=== PATIENT | female | born 1955 | race Caucasian/White ===

== ENCOUNTER → 2020-11-21 06:33 | Outpatient (CLI) | payer MEDICARE, SELFPAY ==
[2020-11-21 15:23] LABS: SARS-CoV-2 RNA PCR Negative
== END ==
PROVIDERS: PCP Family Medicine; Visit Provider Physician Assistant Medical
DX: Z20.822 Contact with and (suspected) exposure to COVID-19 (principal)
CPT/HCPCS: C9803; U0003; U0005

== ENCOUNTER 2022-01-22 13:49 | Outpatient (CLI) | payer MEDICARE, SELFPAY ==
--- NOTE | ~2022-01-22 | MM_ITS ---
EXAMINATION: MM screening bimal BI w césar HISTORY: Screening TECHNIQUE: Craniocaudal and mediolateral oblique 3-D tomosynthesis images were obtained and synthetic 2-D images were generated. CAD analysis was submitted and interpreted. COMPARISON: Comparison to multiple prior studies sequentially, with oldest reviewed study dated 01/04. BREAST PARENCHYMAL COMPOSITION: Breast composed of scattered areas of fibroglandular density FINDINGS: There are developing masses bilaterally in the upper outer quadrants as well as the lower i nner quadrant of the left breast. There are benign breast calcifications, unchanged. IMPRESSION: 1. Developing bilateral breast masses. 2. Additional mammographic views and possible breast ultrasound are recommended. BI-RADS Category 0: Incomplete: Needs additional imaging evaluation. Reviewed, dictated and finalized at location A. IMPRESSION: 1. Developing bilateral breast masses. 2. Additional mammographic views and possible breast ultrasound are recommended . BI-RADS Category 0: Incomplete: Needs additional imaging evaluation.
== END 2022-01-22 13:50 | disposition home or self-care (01) ==
LOC: ANHIMG 13:55
PROVIDERS: PCP Family Medicine; Visit Provider Family Medicine
DX: Z12.31 Encounter for screening mammogram for malignant neoplasm of breast (principal); R92.8 Other abnormal and inconclusive findings on diagnostic imaging of breast
CPT/HCPCS: 77063; 77067

== ENCOUNTER 2022-02-03 11:01 | Outpatient (CLI) | payer MEDICARE, SELFPAY ==
--- NOTE | ~2022-02-03 | MMUS_ITS ---
EXAMINATION: MM diagnostic bimal BI w césar, US breast LT complete, US breast RT limited HISTORY: Follow-up bilateral breast asymmetries TECHNIQUE: Additional 3-D tomosynthesis images of the breasts were performed and synthetic 2-D images were generated. CAD analysis was submitted and interpreted. High resolution Limited right and comple te left breast ultrasound was performed. COMPARISON: Comparison to multiple prior studies sequentially, with oldest reviewed study dated 02/07. BREAST PARENCHYMAL COMPOSITION: Breast composed of scattered areas of fibroglandular density FINDINGS: MAMMOGRAPHIC FINDINGS: There is a persistent mass in the upper outer quadrant of the right breast posteriorly. Focal left br east asymmetries are not apparent with spot compression and mediolateral views. ULTRASOUND: Complete left breast ultrasound including all 4 quadrants in the subareolar location as well as limit ed ultrasound of the right breast: Right breast: At 10:00, 5 cm from the nipple there is an 8 mm cyst corresponding to the mammographic finding. Left breast: There are multiple cysts of the left breast including a 6 mm cyst at 3:00 and 5 mm cyst at 6:00. No suspicious masses to suggest malignancy. IMPRESSION: 1. No evidence for malignancy in either breast. Bilateral benign findings. 2. Routine yearly screening mammogram and regular clinical breast examination are recommended. BI-RADS Category 2: Benign finding(s). Reviewed, dictated and finalized at location A. IMPRESSION: 1. No evidence for malignancy in either breast. Bilateral benign findings. 2. Routine yearly screening mammogram and regular clinical breast examination a re recommended. BI-RADS Category 2: Benign finding(s). IMPRESSION: 1. No evidence for malignancy in either breast. Bilateral benign findings. 2. Routine yearly screening mammogram and regular clinical breast examination a re recommended. BI-RADS Category 2: Benign finding(s).
== END 2022-02-03 11:02 | disposition home or self-care (01) ==
LOC: ANHIMG 11:05
PROVIDERS: PCP Family Medicine; Visit Provider Family Medicine
DX: R92.8 Other abnormal and inconclusive findings on diagnostic imaging of breast (principal)
CPT/HCPCS: 76641; 76642; 77062; 77066; G0279

== ENCOUNTER 2022-04-11 11:17 | Emergency (ER) | payer MEDICARE, SELFPAY ==
--- NOTE | ~2022-04-11 | XR_ITS ---
XR knee LT 3V DATE: 04/11/2022 11:53 INDICATION: Fall. Left knee pain, patellar tenderness. Abrasion, bruising TECHNIQUE: Portable three-view examination including crosstable lateral COMPARISON: None FINDINGS: No fracture or dislocation or joint effusion, periosteal reaction or bone destruction, radi opaque intra-articular loose body or chondrocalcinosis or significant joint space narrowing is eviden t. IMPRESSION: Negative Reviewed, dictated and finalized at location B. IMPRESSION: Negative
[2022-04-11 11:28] VITALS: PULSE 65; RESP 16; TEMP 36.6; O2SAT 100
--- NOTE | 2022-04-11 11:36 | ED.FALL ---
HPI - Fall General Chief Complaint: Fall Stated Complaint: fall, hurt left knee Time Seen by Provider: 04/11/22 11:21 History of Present Illness HPI Narrative: Patient is an 66-year-old female here for evaluation of left knee pain after fall today. Patient states that she was in her usual state of health, walking on concrete, when she missed a step, causing her to fall, landed on her out stretched hands and her left knee. Patient states she does not have any hand or wrist pain currently and is currently only complaining of left knee pain. She denies any head injury or loss of consciousness. She denies any confusion, chest pain, weakness, fevers or chills. She has been ambulating on the leg but does states it is sore. Has not taken any medication for the pain. No numbness or tingling in her leg or hands. Related Data Home Medications Medication Instructions Recorded Confirmed calcium carbonate 500 mg calcium 500 mg PO DAILY 05/26/19 05/26/19 (1,250 mg) tablet (Calcium 500) folic acid 1 mg tablet 1 mg PO DAILY 05/26/19 05/26/19 multivitamin with minerals (Daily 1 tablet PO DAILY 05/26/19 05/26/19 Multivitamin-Minerals tablet) ascorbic acid (vitamin C) 1,000 mg 500 mg PO DAILY 04/02/22 04/02/22 tablet (Vitamin C) cholecalciferol (vitamin D3) 25 2,000 unit PO DAILY 04/02/22 04/02/22 mcg (1,000 unit) capsule (Vitamin D3) folic acid 800 mcg tablet 0.8 mg PO DAILY 04/02/22 04/02/22 Allergies Allergy/AdvReac Type Severity Reaction Status Date / Time No Known Allergies Allergy Mild Verified 04/02/22 10:42 Review of Systems Review of Systems: Gen: Denies fevers or chills Eyes: Denies eye pain or visual change ENT: Denies congestion Respiratory: Denies shortness of breath or cough CV: Denies chest pain or palpitations GI: Denies abdominal pain nausea, emesis or diarrhea : denies burning, urgency, frequency or hematuria Musculoskeletal: Reports left knee pain. Denies back pain or muscle pain Neuro: Denies numbness, tingling, weakness or focal weakness Skin: Denies rash Except as documented, all other systems reviewed and negative [facility] Past Medical History Medical History Abnormal colonoscopy 06-01-19/ fedder/ transverse colon polyps repeat in 5 years G-6-PD deficiency Surgical History Surgical History History of breast surgery marker placed after bx Family History Family History Father Hypertension Cerebrovascular accident Carcinoma of colon Family history of pancreatic cancer Family history of primary malignant neoplasm of liver Mother Hypertension Family history of Alzheimer's disease Family history of dementia Sibling Family history of sudden Other Family history of bipolar disorder Family history of cardiovascular disease Family history of malignant neoplasm of breast Family history of mental disorder Social History Social History Smoking status: Never smoker Alcohol intake: never Exam Narrative: APPEARANCE: Well appearing, no pain in distress, well-nourished. Head: Normocephalic and atraumatic. EYES: PERRLA/EOMI, conjunctivae clear NOSE: No nasal drainage EARS: External ear normal in appearance THROAT: Oropharynx is clear. Mucous membranes are moist. NECK: Supple. No adenopathy, no masses. RESPIRATORY: Airway patent, respirations nonlabored. Clear to auscultation bilaterally, no rales, rhonchi, wheezing. CARDIOVASCULAR: Regular rate and rhythm without murmurs, rubs, or gallops. ABDOMINAL: Normoactive bowel sounds. Soft, nontender, nondistended. No rebound tenderness or guarding. MUSCULOSKELETAL: Tender to palpation along anterior left patella. She has range of motion in her left knee, notes flexion is painful.
[2022-04-11 11:56] VITALS: BP 188/65
== END 2022-04-11 12:41 | disposition home or self-care (01) ==
PROVIDERS: Emergency Provider Emergency Medicine; PCP Family Medicine
DX: S89.92XA Unspecified injury of left lower leg, initial encounter (principal); W10.1XXA Fall (on)(from) sidewalk curb, initial encounter
CPT/HCPCS: 73562; 99283

== ENCOUNTER 2022-06-06 13:43 | Outpatient (CLI) | payer MEDICARE, SELFPAY ==
--- NOTE | ~2022-06-06 | DEXA_ITS ---
Bone Density Report Name: GAYLA ROBERTS Age: 66 Sex: Female Ethnicity: White Date of : 1955 Indication: postmenopausal; screening for osteoporosis; Referring Provider: LEI BENNETT Study: Bone densitometry was performed. Exam Date: June 06, 2022 Accession number: [id number] Bone Density: Region BMD T-score Z-score Classification AP Spine(L1-L4) 0.880 -1.5 0.5 Osteopenia Femoral Neck (Left) 0.663 -1.7 0.1 Osteopenia Total Hip (Left) 0.777 -1.4 0.1 Osteopenia Femoral Neck (Right) 0.720 -1.2 0.6 Osteopenia Total Hip (Right) 0.859 -0.7 0.8 Normal Total Hip Mean 0.818 -1.1 0.5 Osteopenia World Health Organization criteria for BMD impression classify patients as: Normal (T-score at or above -1.0), Osteopenia (T-score between -1.0 and -2.5), or Osteoporosis (T-score at or below -2.5). 10-year Fracture Risk(1): Major Osteoporotic Fracture 10% Hip Fracture 1.5% Reported Risk Factors: [place] (), Neck BMD=0.663, BMI=26.1 (1) FRAX(R) Version 3.08. Fracture probability calculated for an untreated patient. Fracture probability may be lower if the patient has received treatment. Clinical Information Provided by Patient: Has used the following medications: Vitamin D, Calcium Patient maximum height was 63 Onset of menses at age 12 Number of children 6 Impression: The patient has low bone mass, based on the Left Femoral Neck T-score. The patient has an estimated ten-year risk of hip fracture of 1.5% and an estimated ten-year risk of major fracture of 10%, based on the WHO FRAX algorithm. Discussion: BONE DENSITY IS LOW AT ONE OR MORE SKELETAL SITES. This patient's lowest T-score is low at one or more skeletal sites. It meets the World Health Organization's (WHO) criteria for ?low bone mass? (T-score between -1.0 and -2.5). The patient's 10-year risk of fracture as calculated by FRAX is less than the threshold where pharmacological therapy is recommended by the National Osteoporosis Foundation (NOF). However, all treatment decisions require clinical judgment and consideration of individual patient factors, including patient preferences, comorbidities, previous drug use, risk factors not captured in the FRAX model (e.g., frailty, falls, vitamin D deficiency, increased bone turnover, interval significant decline in bone density) and possible under or overestimation of fracture risk by FRAX. The patient should follow a healthful lifestyle (good nutrition with adequate calcium and vitamin D, and appropriate weight-bearing exercise). Follow-Up: Consider repeating this study in 2 to 3 years to reassess this patient's status, or sooner if there is some new clinical indication. Reported by: YUMIKO on 06/06/2022 2:01:00 PM.
== END 2022-06-06 13:44 | disposition home or self-care (01) ==
LOC: ANHIMG 13:44
PROVIDERS: PCP Family Medicine; Visit Provider Physician Assistant
DX: Z78.0 Asymptomatic menopausal state (principal); M85.89 Other specified disorders of bone density and structure, multiple sites
CPT/HCPCS: 77080

== ENCOUNTER 2022-11-04 09:00 | Outpatient (NON) | payer MEDICARE, SELFPAY | END 2022-11-04 09:01 | disposition home or self-care (01) | LOC: ANHLAB 11-05 12:21 | PROVIDERS: PCP Family Medicine; Visit Provider Nurse Practitioner | DX: D17.22 Benign lipomatous neoplasm of skin and subcutaneous tissue of left arm (principal) | CPT/HCPCS: 88304 ==

== ENCOUNTER 2023-05-22 10:40 | Outpatient (CLI) | payer MEDICARE, SELFPAY ==
[2023-05-22 18:38] LABS: Basophils Absolute Auto 0.1 K/mm3 (0.0-0.1); Basophils Percent Auto 0.7 % (0.2-1.2); Eosinophils Absolute Auto 0.4 K/mm3 (0-0.3); Eosinophils Percent Auto 3.4 % (0-4.4); Hematocrit 38.7 % (37.0-47.0); Immature Granulocyte Absolute 0.05 K/mm3 (0.00-0.031); Immature Granulocyte Percent A 0.5 % (0-0.5); Lymphocytes Absolute Auto 3.28 K/mm3 (0.9-3.2); Lymphocytes Percent Auto 32.1 % (18.3-44.2); Mean Corpuscular Hemoglobin 33.2 pg (26-34); Mean Corpuscular Volume 107.2 fl (80-100); Mean Platelet Volume 10.9 fl (7.4-10.4); Monocytes Absolute Auto 0.6 K/mm3 (0.1-0.6); Monocytes Percent Auto 5.8 % (2.6-8.5); Neutrophils Absolute Auto 5.9 K/mm3 (1.3-6.7); Neutrophils Percent Auto 57.5 % (45.5-73.1); Platelet Count Result 206 k/mm3 (150-375); Red Blood Count 3.61 M/mm3 (4.2-5.4); Red Cell Distribution Width 14.1 % (11.5-14.5); White Blood Count 10.2 K/mm3 (4.5-10.0)
[2023-05-22 18:40] LABS: Anion Gap 6 mmol/L (8-16); Blood Urea Nitrogen 16 mg/dL (7-17); Calcium 9.6 mg/dL (8.4-10.2); Carbon Dioxide 31 mmol/L (22-30); Chloride 106 mmol/L (98-107); Cholesterol 219 mg/dL (0-200); Estimated Glomerular Filt Rate > 60; Glucose 95 mg/dL (65-110); HDL Direct 44 mg/dL; Sodium 143 mmol/L (137-145); Triglycerides 112 mg/dL (<150)
[2023-05-22 18:50] LABS: LDL Cholesterol Direct 139 mg/dL
[2023-05-22 19:01] LABS: Vitamin D 25 Hydroxy 57.7 ng/mL
[2023-05-22 19:10] LABS: Thyroid Stimulating Hormone 0.534 uIU/mL (0.465-4.680)
[2023-05-22 19:20] LABS: Hypochromasia 1+ (NORMAL); Platelet Estimate Adequate (Adequate); Schistocytes None Seen (NORMAL)
[2023-05-22 19:21] LABS: Macrocytosis 1+ (NORMAL)
[2023-05-22 19:33] LABS: Hepatitis C Virus Antibody Negative (Negative)
== END 2023-05-22 10:41 | disposition home or self-care (01) ==
PROVIDERS: PCP Family Medicine; Visit Provider Nurse Practitioner Family
DX: E55.9 Vitamin D deficiency, unspecified (principal); M85.80 Other specified disorders of bone density and structure, unspecified site; R03.0 Elevated blood-pressure reading, without diagnosis of hypertension; Z11.59 Encounter for screening for other viral diseases; Z68.30 Body mass index [BMI] 30.0-30.9, adult; Z78.0 Asymptomatic menopausal state; E78.00 Pure hypercholesterolemia, unspecified; R53.83 Other fatigue
CPT/HCPCS: 36415; 80048; 80061; 82306; 84443; 85025; 86803

== ENCOUNTER 2023-05-27 07:41 | Outpatient (CLI) | payer MEDICARE, SELFPAY ==
--- NOTE | ~2023-05-27 | MM_ITS ---
EXAMINATION: MM screening bimal BI w césar HISTORY: Screening TECHNIQUE: Craniocaudal and mediolateral oblique 3-D tomosynthesis images were obtained and synthetic 2-D images were generated. CAD analysis was submitted and interpreted. COMPARISON: Comparison to multiple prior studies sequentially, with oldest reviewed study dated 03/19. BREAST PARENCHYMAL COMPOSITION: There are scattered areas of fibroglandular density. FINDINGS: There are stable benign-appearing breast calcifications. Bilateral breast asymmetries are s table. There is no evidence of suspicious mass, calcification, or architectural distortion to suggest malignancy in either breast. There has been no suspicious interval change. IMPRESSION: 1. No mammographic evidence of malignancy. 2. Recommend routine screening mammography in one year. BI-RADS Category 2: Benign finding(s). Reviewed, dictated and finalized at location A. CTOR OF NURSES REGISTRY
== END 2023-05-27 07:42 | disposition home or self-care (01) ==
PROVIDERS: PCP Family Medicine; Visit Provider Nurse Practitioner Family
DX: Z12.31 Encounter for screening mammogram for malignant neoplasm of breast (principal)
CPT/HCPCS: 77063; 77067

== ENCOUNTER 2024-06-24 09:24 | Outpatient (CLI) | payer MEDICARE, SELFPAY ==
--- NOTE | ~2024-06-24 | MM_ITS ---
EXAMINATION: MM screening mammo BI HISTORY: Screening TECHNIQUE: Craniocaudal and mediolateral oblique 3-D tomosynthesis images were obtained and synthetic 2-D images were generated. CAD analysis was submitted and interpreted. COMPARISON: Comparison to multiple prior studies sequentially, with oldest reviewed study dated 07/29. BREAST PARENCHYMAL COMPOSITION: Not dense: There are scattered areas of fibroglandular density. FINDINGS: There is no evidence of suspicious mass, calcification, or architectural distortion to sugg est malignancy in either breast. There has been no suspicious interval change. IMPRESSION: 1. No mammographic evidence of malignancy. 2. Recommend routine screening mammography in one year. BI-RADS Category 1: Negative Reviewed, dictated and finalized at location B. LOPER ADVISOR
== END 2024-06-24 09:25 | disposition home or self-care (01) ==
LOC: ANHIMG 09:25
PROVIDERS: PCP Family Medicine; Visit Provider Family Medicine
DX: Z12.31 Encounter for screening mammogram for malignant neoplasm of breast (principal)
CPT/HCPCS: 77067

== ENCOUNTER 2025-01-02 09:15 | Outpatient (CLI) | payer MEDICARE, SELFPAY ==
--- NOTE | ~2025-01-02 | DEXA_ITS ---
Bone Density Report Name: GAYLA ROBERTS Age: 69 Sex: Female Ethnicity: White Date of : 1955 Indication: osteopenia; Referring Provider: KIMMIE DURADN Study: Bone densitometry was performed. Exam Date: January 02, 2025 Accession number: [id number] Bone Density: Region BMD T-score Z-score Classification AP Spine(L1-L4) 0.858 -1.7 0.5 Osteopenia Femoral Neck (Left) 0.686 -1.5 0.4 Osteopenia Total Hip (Left) 0.868 -0.6 1.0 Normal Femoral Neck (Right) 0.719 -1.2 0.7 Osteopenia Total Hip (Right) 0.914 -0.2 1.4 Normal Total Hip Mean 0.891 -0.4 1.2 Normal World Health Organization criteria for BMD impression classify patients as: Normal (T-score at or above -1.0), Osteopenia (T-score between -1.0 and -2.5), or Osteoporosis (T-score at or below -2.5). 10-year Fracture Risk(1): Major Osteoporotic Fracture 9.7% Hip Fracture 1.4% Reported Risk Factors: [place] (), Neck BMD=0.686, BMI=30.9 (1) FRAX(R) Version 3.08. Fracture probability calculated for an untreated patient. Fracture probability may be lower if the patient has received treatment. Previous Exams: Region Exam Age BMD T-score BMD Change BMD Change Date g/cm2 vs Baseline vs Previous AP Spine (L1-L4) 01/02/2025 69 0.858 -1.7 -0.047 (-5.1%) -0.022 (-2.5%) 06/06/2022 66 0.880 -1.5 -0.024 (-2.7%) -0.024 (-2.7%) 07/29/2018 63 0.905 -1.3 Total Hip(Left) 01/02/2025 69 0.868 -0.6 -0.130 (-13.0% 0.091 (11.7%)* 06/06/2022 66 0.777 -1.4 -0.221 (-22.2% -0.221 (-22.2% 07/29/2018 63 0.998 0.5 Total Hip(Right) 01/02/2025 69 0.914 -0.2 -0.097 (-9.6%) 0.056 (6.5%)* 06/06/2022 66 0.859 -0.7 -0.152 (-15.1% -0.152 (-15.1% 07/29/2018 63 1.011 0.6 *Denotes significance at 95% confidence level, LSC for AP Spine = 0.022 g/cm2, LSC for Total Hip = 0.027 g/cm2 Clinical Information Provided by Patient: Has used the following medications: Vitamin D, Calcium Patient maximum height was 63 Onset of menses at age 12 Number of children 6 Impression: The patient has low bone mass, based on the Total Spine T-score. The patient has an estimated ten-year risk of hip fracture of 1.4% and an estimated ten-year risk of major fracture of 9.7%, based on the WHO FRAX algorithm. No significant bone loss was observed. Discussion: BONE DENSITY IS LOW AT ONE OR MORE SKELETAL SITES. This patient's lowest T-score is low at one or more skeletal sites. It meets the World Health Organization's (WHO) criteria for ?low bone mass? (T-score between -1.0 and -2.5). The patient's 10-year risk of fracture as calculated by FRAX is less than the threshold where pharmacological therapy is recommended by the National Osteoporosis Foundation (NOF). However, all treatment decisions require clinical judgment and consideration of individual patient factors, including patient preferences, comorbidities, previous drug use, risk factors not captured in the FRAX model (e.g., frailty, falls, vitamin D deficiency, increased bone turnover, interval significant decline in bone density) and possible under or overestimation of fracture risk by FRAX. The patient should follow a healthful lifestyle (good nutrition with adequate calcium and vitamin D, and appropriate weight-bearing exercise). Follow-Up: Consider repeating this study in 2 to 3 years to reassess this patient's status, or sooner if there is some new clinical indication. Reported by: YUMIKO on 01/02/2025 9:52:00 AM. Reviewed, dictated and finalized at location A.
--- OUTSIDE RECORDS SUMMARY | 2025-01-02 09:46 | XMS_ITS | Clinical Summary ---
Author Organization [facility] Address [address] [place] [address] Care Team Providers Care Director Of Land Acquisition Name Role Phone Unavailable Primary Care Provider Unavailabl e Social History Tobacco Use Types Packs/Day Years Used Date Smoking Tobacco: Never Assessed Comments Unknown Sex and Gender Information Value Date Recorded Sex Assigned at Not on file Legal Sex Female 4:44 PM CDT Gender Identity Not on file Sexual Orientation Not on file Plan of Treatment Health Maintenance Due Date Last Done Comments Colorectal Cancer Screening Colonoscopy (10 Years) 1955 Hepatitis C 1971 DTaP, Tdap and Td Vaccines ( 1 - Tdap) 1972 Mammogram Screening 1993 Pneumococcal Vaccine: 50+ Ye ars (1 of 1 - PCV) 2003 Zoster Vaccines (1 of 2) 2003 Dexa Scan (General) 2018 COVID-19 Vaccine ( - 2023-2 5 season) 2024 RSV Immunization or 60+ Years (1 - 1-dose 75+ series) 2028 Meningococcal B Vaccine Aged Out No l onger eligible based on patient's age to complete this topic Meningococcal Vaccine Aged Out No christophe dennis eligible based on patient's age to complete this topic RSV Immunizations Under 20 Months Aged Out No longer eligible based on patient's age to complete this topic
== END 2025-01-02 09:16 | disposition home or self-care (01) ==
PROVIDERS: PCP Family Medicine; Visit Provider Family Medicine
DX: M85.89 Other specified disorders of bone density and structure, multiple sites (principal); Z78.0 Asymptomatic menopausal state
CPT/HCPCS: 77080

== ENCOUNTER 2025-06-19 00:15 | Day surgery (SDC) | payer MEDICARE, SELFPAY ==
[2025-05-30 15:09] VITALS: BMI 29.7
[2025-06-19 07:38] VITALS: BP 180/83; PULSE 77; RESP 18; TEMP 36.1; O2SAT 99; BMI 29.2
--- NOTE | 2025-06-19 07:40 | WPDANESEPPF ---
Anes - Initial Pre Proc Eval Procedure: Operation Date: 06/19/25 09:00 Proposed Procedures p Screening Colonoscopy - Arik Seay MD Date/Time: 06/19/25 07:40 Surgeon: Arik Seay MD Pre Op Diagnosis: Personal history of colon polyps, unspecified Patient Data Age: 69 Gender: F Height: 1.6 m Weight: 75 kg Last Vital Signs Temp 36.1 C L 06/19/25 07:38 Pulse 77 06/19/25 07:38 Resp 18 06/19/25 07:38 BP 180/83 H 06/19/25 07:38 Pulse Ox 99 06/19/25 07:38 O2 Del Method Room Air 06/19/25 07:38 Allergies Allergy/AdvReac Type Severity Reaction Status Date / Time No Known Allergies Allergy Mild Verified 06/19/25 07:36 Home Medications ?Medication ?Instructions ?Recorded ?Confirmed ?Type calcium carbonate (Calcium 500) 500 mg PO DAILY 05/26/19 06/19/25 History multivitamin with minerals (Daily 1 tablet PO DAILY 05/26/19 06/19/25 History Multivitamin-Minerals tablet) ascorbic acid (vitamin C) 1,000 mg 500 mg PO DAILY 04/02/22 06/19/25 History tablet (Vitamin C) cholecalciferol (vitamin D3) 25 2,000 unit PO DAILY 04/02/22 06/19/25 History mcg (1,000 unit) capsule (Vitamin D3) folic acid 800 mcg tablet 0.8 mg PO DAILY 04/02/22 06/19/25 History sodium sul 1.479 gram-potas ch See Rx Instructions PO PER PKG DIR 11/28/24 06/19/25 Rx 0.188 gram-magnes sul 0.225 gram #24 tabs tablet (Sutab) Patient hx anesthesia problems: none Family hx anesthesia problems: none Results Review: All pre-operative results and documents have been reviewed as part of the pre-operative evaluation. [facility] Past Medical History Medical History Abnormal colonoscopy 06-01-19/ fedder/ transverse colon polyps repeat in 5 years G-6-PD deficiency Surgical History Surgical History History of breast surgery marker placed after bx Family History Family History Father Hypertension Cerebrovascular accident Carcinoma of colon Family history of pancreatic cancer Family history of primary malignant neoplasm of liver Mother Hypertension Family history of Alzheimer's disease Family history of dementia Sibling Family history of sudden Other Family history of bipolar disorder Family history of cardiovascular disease Family history of malignant neoplasm of breast Family history of mental disorder Social History Social History Smoking status: Never smoker Alcohol intake: never Substance use: never Substance use type: does not use Lack of Transportation: No Lack of Food: Never True Current Housing: I Have Housing Concerned About Future Housing: No Difficulty Paying Gas/Electric Bills: No Difficulty Paying for Meds: No Currently Unemployed: No Education: Associate Degree Difficulty w/ Childcare or Family Care: No Living arrangements: with family Spiritual care concerns: No Anes - Eval Final PreProcedure Day of Procedure 06/19/25 07:40 Patient weight: overweight Heart: regular rate and rhythm Lungs: clear to auscultation Airway: Mallampati scale class II Neurological: alert and oriented Last oral intake: >/= 8 hours ASA classification: II Emergent: no Anesthetic plan: proceed Anesthesia type and monitoring: general GIVS and standard monitoring Results Review: All pre-operative results and documents have been reviewed as part of the pre-operative evaluation. Informed Consent: The patient's anesthetic plan and its attendant risks and benefits were discussed with the patient/family/POA. Questions were solicited and answers provided to the satisfaction of the patient/family/POA.
[2025-06-19] MEDS: LACTATED RINGERS 1,000 ML 150 ML IV CONT (07:53)
--- NOTE | 2025-06-19 08:38 | PM.HPGS ---
History of Present Illness History of Present Illness Consent: Risks, benefits, and alternatives have been discussed and questions answered. Patient agrees to proceed with procedure. Chief complaint: Personal history of colon polyps, unspecified Narrative: Tamar Henderson is a 69 year old female with colon polyp in 2019 Review of Systems Review of Systems: All systems reviewed & are unremarkable except as noted in HPI and below PMFSH Past Medical History Medical History Abnormal colonoscopy 06-01-19/ fedder/ transverse colon polyps repeat in 5 years G-6-PD deficiency Surgical History Surgical History History of breast surgery marker placed after bx Family History Family History Father Hypertension Cerebrovascular accident Carcinoma of colon Family history of pancreatic cancer Family history of primary malignant neoplasm of liver Mother Hypertension Family history of Alzheimer's disease Family history of dementia Sibling Family history of sudden Other Family history of bipolar disorder Family history of cardiovascular disease Family history of malignant neoplasm of breast Family history of mental disorder Social History Social History Smoking status: Never smoker Alcohol intake: never Substance use: never Substance use type: does not use Lack of Transportation: No Lack of Food: Never True Current Housing: I Have Housing Concerned About Future Housing: No Difficulty Paying Gas/Electric Bills: No Difficulty Paying for Meds: No Currently Unemployed: No Education: Associate Degree Difficulty w/ Childcare or Family Care: No Living arrangements: with family Spiritual care concerns: No Meds Home Medications and Allergies Home Medications ?Medication ?Instructions ?Recorded ?Confirmed ?Type calcium carbonate (Calcium 500) 500 mg PO DAILY 05/26/19 06/19/25 History multivitamin with minerals (Daily 1 tablet PO DAILY 05/26/19 06/19/25 History Multivitamin-Minerals tablet) ascorbic acid (vitamin C) 1,000 mg 500 mg PO DAILY 04/02/22 06/19/25 History tablet (Vitamin C) cholecalciferol (vitamin D3) 25 2,000 unit PO DAILY 04/02/22 06/19/25 History mcg (1,000 unit) capsule (Vitamin D3) folic acid 800 mcg tablet 0.8 mg PO DAILY 04/02/22 06/19/25 History sodium sul 1.479 gram-potas ch See Rx Instructions PO PER PKG DIR 11/28/24 06/19/25 Rx 0.188 gram-magnes sul 0.225 gram #24 tabs tablet (Sutab) Allergies Allergy/AdvReac Type Severity Reaction Status Date / Time No Known Allergies Allergy Mild Verified 06/19/25 07:36 Vital Signs Vital Signs - 24 hr 06/19/25 07:38 Temperature 97 F L Pulse Rate 77 Respiratory Rate 18 Blood Pressure 180/83 H Pulse Oximetry 99 Oxygen Delivery Room Air Exam Const: General: comfortable and no acute distress HENMT: Face/Nose/Sinus: Normal nares present Eyes: General: appearance normal, both eyes and all related structures Neck: Neck: no JVD Resp: Auscultation: clear to auscultation bilaterally Cardio: Rate: regular rate Rhythm: regular rhythm GI: Inspection: non-distended GI Palp: Yes Soft to palpation Skin: General skin exam: normal color Extrem: General: normal to inspection Psych: Mental Status: mental status grossly normal Assessment and Plan Assessment and plan (1) Colon polyps: Code(s): K63.5 - Polyp of colon Status: Acute Assessment and Plan: colonoscopy
--- NOTE | 2025-06-19 08:51 | S_PTH ---
PATIENT: Tamar Henderson LOC: [facility] Wong#:[id number] AGE/SX: 69/F ROOM: RE06/19/[address]: Arik Seay MD : 1955 BED: DIS: 06/19/2025 SPEC #: [id number] RECD: 06/19/25 10:43 STATUS: KALI FREGOSO #: [id number] FRANCISCO: 06/19/25 08:[address]: Arik Seay DEPT: [facility] Surgical RECD BY: Britany Paris ENTERED: 06/19/25 10:44 SP TYPE: Surgical OTHR DR: Jhon Browning MD Tissues: A - Colon Polypectomy B - Colon Polypectomy Procedures: Hematoxylin and Eosin Stain Gross and Microscopic Level 4
[2025-06-19 08:56] VITALS: BP 137/53; PULSE 91; RESP 20; O2SAT 98
[2025-06-19 09:06] VITALS: BP 139/55; PULSE 61; RESP 16; O2SAT 98
[2025-06-19 09:16] VITALS: BP 158/53; PULSE 63; RESP 22; O2SAT 100
== END 2025-06-19 09:22 | disposition home or self-care (01) ==
PROVIDERS: PCP Family Medicine; Referring Provider Nurse Practitioner Family; Visit Provider Internal Medicine Gastroenterology
PROC: 0DJD8ZZ Inspection of Lower Intestinal Tract, Via Natural or Artificial Opening Endoscopic (ICD-10-PCS; CPT 45378; principal; 2025-06-19 09:00)
DX: Z12.11 Encounter for screening for malignant neoplasm of colon (principal); D12.4 Benign neoplasm of descending colon; K63.5 Polyp of colon; K57.30 Diverticulosis of large intestine without perforation or abscess without bleeding; K64.8 Other hemorrhoids
CPT/HCPCS: 45385; 88305; J2003; J2704; J7120

== ENCOUNTER 2025-06-28 08:11 | Outpatient (CLI) | payer MEDICARE, SELFPAY ==
--- NOTE | ~2025-06-28 | MM_ITS ---
EXAMINATION: MM screening bimal BI w césar HISTORY: Screening. TECHNIQUE: Craniocaudal and mediolateral oblique 3-D tomosynthesis images were obtained and synthetic 2-D images were generated. CAD analysis was submitted and interpreted. COMPARISON: 2023, 2022, and 2021. BREAST PARENCHYMAL COMPOSITION: Dense: The breasts are heterogeneously dense FINDINGS: There are findings consistent with the known breast cysts. There is a small mass in the left breast in the mid depth just inferior to the nipple line. It contains a few calcifications. There are asymmetries seen on each view on the left, separate from this, which may or may not represent a single structure. There are no suspicious calcifications. No unexplained architectural distortion is seen. There are no skin or nipple abnormalities identified. There is no adenopathy seen on the images submitted. IMPRESSION: Questionable findings on the left for which additional imaging is recommended. BI-RADS 0 - Incomplete - needs additional imaging evaluation Reviewed, dictated and finalized at location C. ING PIT OPERATOR
== END 2025-06-28 08:12 | disposition home or self-care (01) ==
LOC: ANHFOHIMG 08:13
PROVIDERS: PCP Family Medicine; Visit Provider Family Medicine
DX: Z12.31 Encounter for screening mammogram for malignant neoplasm of breast (principal); R92.8 Other abnormal and inconclusive findings on diagnostic imaging of breast
CPT/HCPCS: 77063; 77067